=== PATIENT | male | born 1960 | race Caucasian/White ===

== ENCOUNTER 2019-10-26 11:15 | Emergency (ER) | payer MEDICARE, SELFPAY ==
--- NOTE | ~2019-10-26 | XR_ITS ---
EXAMINATION: XR knee RT 2V DATE: 10/26/2019 12:04 INDICATION: Lateral right knee pain and swelling post twisting injury. TECHNIQUE: AP and crosstable lateral views of the right knee were obtained.. COMPARISON: 06/28/2019 FINDINGS: Alignment is normal. No fracture. Joint spaces appear normal on nonweightbearing imaging. No right kn ee joint effusion or layering lipohemarthrosis. Prominent dense prepatellar soft tissue swelling.Mild soft tissue swelling extends about the medial and to lesser degree lateral sides of the knee. IMPRESSION: 1. No right knee joint effusion or osseous abnormality. 2. Prominent dense reticular soft tissue swelling which in the setting of trauma suggests hematoma. Reviewed, dictated and finalized at location A. IMPRESSION: 1. No right knee joint effusion or osseous abnormality. 2. Prominent dense reticular soft tissue swelling which in the setting of traum a suggests hematoma.
[2019-10-26 11:32] VITALS: BP 151/89; PULSE 70; RESP 16; TEMP 36.7; O2SAT 99
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
[2019-10-26 12:08] LABS: Basophils Absolute Auto 0.03 K/mm3 (0.00-0.10); Basophils Percent Auto 0.4 % (0.0-1.0); Hematocrit 41.1 % (40.0-54.0); Immature Granulocyte Absolute 0.05 K/mm3 (0.00-0.00); Immature Granulocyte Percent A 0.7 % (0.0-0.0); Lymphocytes Absolute Auto 1.47 K/mm3 (1.10-4.50); Lymphocytes Percent Auto 19.5 % (18.0-42.0); Mean Corpuscular HGB Conc 34.1 g/dL (32.0-36.0); Mean Corpuscular Hemoglobin 33.1 pg (27.0-31.0); Mean Corpuscular Volume 97.2 fL (78.0-102.0); Mean Platelet Volume 9.7 fl (8.7-11.0); Monocytes Absolute Auto 0.82 K/mm3 (0.10-0.90); Monocytes Percent Auto 10.9 % (2.0-11.0); Neutrophils Absolute Auto 5.2 K/mm3 (1.7-7.2); Neutrophils Percent Auto 68.5 % (50.0-70.0); Platelet Count Result 231 K/mm3 (150-420); Red Blood Count 4.23 M/mm3 (4.70-6.10); Red Cell Distribution Width 11.7 % (11.6-14.4); White Blood Count 7.6 K/mm3 (4.8-10.8)
[2019-10-26 12:23] LABS: Alanine Aminotransferase 39 U/L (16-63); Albumin Level 3.7 g/dL (3.4-5.0); Alkaline Phosphatase 72 U/L (46-116); Anion Gap 13.1 mmol/L (7-16); Aspartate Amino Transferase 22 U/L (15-37); Bilirubin,Total 0.7 mg/dL (0.00-1.00); Blood Urea Nitrogen 17 mg/dL (7-18); Calcium 8.6 mg/dL (8.5-10.1); Carbon Dioxide 29 mmol/L (21-32); Chloride 102 mmol/L (98-108); Estimated Glomerular Filt Rate > 60; Glucose 109 mg/dL (70-99); Osmolality Calculated 292 mOsm/kg (285-295); Potassium 4.1 mmol/L (3.5-5.1); Sodium 140 mmol/L (136-145); Total Protein 7.6 g/dL (6.4-8.2); Uric Acid 4.8 mg/dL (3.5-7.2)
[2019-10-26 13:00] VITALS: RESP 18
== END 2019-10-26 13:02 | disposition home or self-care (01) ==
PROVIDERS: Emergency Provider Emergency Medicine
DX: M70.41 Prepatellar bursitis, right knee (principal)
CPT/HCPCS: 36415; 73560; 80053; 84550; 85025; 99283; 99284

== ENCOUNTER 2020-11-26 11:25 | Outpatient (NON) | payer MEDICARE, SELFPAY ==
[2020-11-26 13:16] LABS: Alanine Aminotransferase 77 U/L (4-50); Alkaline Phosphatase 206 U/L (38-126); Anion Gap 11 mmol/L (8-16); Aspartate Amino Transferase 84 U/L (17-59); Bilirubin,Total 0.1 mg/dL (0.2-1.3); Blood Urea Nitrogen 17 mg/dL (9-20); Carbon Dioxide 27 mmol/L (22-30); Chloride 101 mmol/L (98-107); Estimated Glomerular Filt Rate > 60; Glucose 91 mg/dL (75-110); Potassium 4.6 mmol/L (3.4-5.0); Sodium 139 mmol/L (137-145)
[2020-11-26 15:17] LABS: Basophils Absolute Auto 0.1 K/mm3 (0.0-0.1); Eosinophils Percent Auto 0.8 % (0-4.4); Hematocrit 33.4 % (42.0-52.0); Hemoglobin 10.7 g/dL (14.0-18.0); Immature Granulocyte Absolute 0.04 K/mm3 (0.00-0.031); Immature Granulocyte Percent A 0.8 % (0-0.5); Lymphocytes Absolute Auto 1.37 K/mm3 (0.9-3.2); Lymphocytes Percent Auto 26.4 % (18.3-44.2); Mean Corpuscular Hemoglobin 31.2 pg (26-34); Mean Corpuscular Volume 97.4 fl (80-100); Monocytes Absolute Auto 0.4 K/mm3 (0.1-0.6); Monocytes Percent Auto 8.3 % (2.6-8.5); Neutrophils Absolute Auto 3.3 K/mm3 (1.3-6.7); Neutrophils Percent Auto 62.7 % (45.5-73.1); Platelet Count Result 375 k/mm3 (150-375); Red Blood Count 3.43 M/mm3 (4.6-6.20); Red Cell Distribution Width 12.1 % (11.5-14.5); White Blood Count 5.2 K/mm3 (4.5-10.0)
== END 2020-11-26 11:26 | disposition home or self-care (01) ==
LOC: ANHLAB 11:32
PROVIDERS: PCP Family Medicine; Visit Provider Plastic Surgery
DX: A49.01 Methicillin susceptible Staphylococcus aureus infection, unspecified site (principal)
CPT/HCPCS: 36415; 80053; 80285; 85025

== ENCOUNTER 2020-12-03 14:39 | Outpatient (NON) | payer MEDICARE, SELFPAY ==
[2020-12-03 15:28] LABS: Basophils Percent Auto 0.6 % (0.2-1.2); Eosinophils Absolute Auto 0.2 K/mm3 (0-0.3); Eosinophils Percent Auto 3.8 % (0-4.4); Hemoglobin 10.5 g/dL (14.0-18.0); Immature Granulocyte Absolute 0.04 K/mm3 (0.00-0.031); Immature Granulocyte Percent A 0.6 % (0-0.5); Lymphocytes Absolute Auto 1.24 K/mm3 (0.9-3.2); Lymphocytes Percent Auto 19.6 % (18.3-44.2); Mean Corpuscular HGB Conc 30.9 g/dl (32-36); Mean Corpuscular Hemoglobin 30.2 pg (26-34); Mean Corpuscular Volume 97.7 fl (80-100); Monocytes Absolute Auto 0.5 K/mm3 (0.1-0.6); Monocytes Percent Auto 7.7 % (2.6-8.5); Neutrophils Absolute Auto 4.3 K/mm3 (1.3-6.7); Neutrophils Percent Auto 67.7 % (45.5-73.1); Platelet Count Result 312 k/mm3 (150-375); Red Blood Count 3.48 M/mm3 (4.6-6.20); Red Cell Distribution Width 11.9 % (11.5-14.5); White Blood Count 6.3 K/mm3 (4.5-10.0)
[2020-12-03 16:01] LABS: Alanine Aminotransferase 16 U/L (4-50); Albumin Level 3.9 g/dL (3.5-5.1); Alkaline Phosphatase 128 U/L (38-126); Anion Gap 8 mmol/L (8-16); Aspartate Amino Transferase 34 U/L (17-59); Bilirubin,Total 0.1 mg/dL (0.2-1.3); Blood Urea Nitrogen 15 mg/dL (9-20); Calcium 8.4 mg/dL (8.4-10.2); Carbon Dioxide 25 mmol/L (22-30); Chloride 107 mmol/L (98-107); Estimated Glomerular Filt Rate > 60; Glucose 88 mg/dL (75-110); Sodium 140 mmol/L (137-145)
== END 2020-12-03 14:40 | disposition home or self-care (01) ==
PROVIDERS: PCP Family Medicine; Visit Provider Plastic Surgery
DX: Z51.81 Encounter for therapeutic drug level monitoring (principal); Z79.2 Long term (current) use of antibiotics
CPT/HCPCS: 36415; 80053; 85025

== ENCOUNTER 2021-01-09 12:06 | Outpatient (CLI) | payer MEDICARE, SELFPAY ==
[2021-01-09 13:05] LABS: Alanine Aminotransferase 25 U/L (16-63); Albumin Level 4.2 g/dL (3.4-5.0); Alkaline Phosphatase 111 U/L (46-116); Anion Gap 15 mmol/L (8-16); Aspartate Amino Transferase 13 U/L (15-37); Bilirubin,Total 0.3 mg/dL (0.00-1.00); Blood Urea Nitrogen 15 mg/dL (7-18); Calcium 9.1 mg/dL (8.5-10.1); Carbon Dioxide 26 mmol/L (21-32); Chloride 102 mmol/L (98-108); Estimated Glomerular Filt Rate > 60; Glucose 156 mg/dL (70-99); Osmolality Calculated 299 mOsm/kg (285-295); Potassium 3.9 mmol/L (3.5-5.1); Sodium 143 mmol/L (136-145); Total Protein 8.1 g/dL (6.4-8.2)
== END 2021-01-09 12:07 | disposition home or self-care (01) ==
LOC: CHSLAB 12:12
PROVIDERS: PCP Family Medicine
DX: M86.142 Other acute osteomyelitis, left hand (principal)
CPT/HCPCS: 36415; 80053

== ENCOUNTER 2021-01-14 14:36 | Outpatient (CLI) | payer MEDICARE, SELFPAY ==
--- NOTE | ~2021-01-14 | XR_ITS ---
EXAMINATION: XR shoulder LT min 2V DATE: 01/14/2021 15:00 INDICATION: Left shoulder pain and limited range of motion. TECHNIQUE: AP internally and externally rotated, AP oblique externally rotated and transscapular Y vi ews of the left shoulder were obtained. COMPARISON: None FINDINGS: Normal alignment. No fracture.Mild left glenohumeral and moderate acromioclavicular osteoarthritis. Soft tissues are unremarkable. IMPRESSION: Mild left glenohumeral and moderate acromioclavicular osteoarthritis. Reviewed, dictated and finalized at location A.
== END 2021-01-14 14:37 | disposition home or self-care (01) ==
LOC: CHSIMG 14:38
PROVIDERS: PCP Family Medicine; Visit Provider Family Medicine
DX: M25.512 Pain in left shoulder (principal)
CPT/HCPCS: 73030

== ENCOUNTER 2021-04-23 11:14 | Emergency (ER) | payer MEDICARE, SELFPAY ==
[2021-04-23 11:25] VITALS: BP 133/87; PULSE 64; RESP 16; TEMP 36.6; O2SAT 100
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
[2021-04-23] MEDS: cefTRIAXone 1 GM VIAL IM (11:46)
== END 2021-04-23 12:01 | disposition home or self-care (01) ==
PROVIDERS: Emergency Provider Emergency Medicine; PCP Family Medicine
DX: L03.012 Cellulitis of left finger (principal); Z87.891 Personal history of nicotine dependence
CPT/HCPCS: 96372; 99283; J0696

== ENCOUNTER 2022-05-20 08:04 | Outpatient (RCR) | payer MEDICARE, SELFPAY ==
--- NOTE | 2022-05-20 08:11 | PTOPEVAL1 ---
Assessment and note entered by JT File, PT Evaluation Information Assessment Status Evaluation Diagnosis s/p R hip joint replacement (revision) Onset 02/14/22 Subjective Information patient reports he fell off a ladder while trying to cut some branches off a tree. he reports during his fall he fractured his R femur where he had a prior hip replacement. he reports he had several other fractures on his R side (ribs) during this fall. he reports he had a revision of the prior hip replacement and is now struggling with his walking and strength in the R hip. he reports he has had several other injuries to his body over the years. he reports the R knee is the most painful joint since his fall. he reports he has had an xray of the R knee, but no MRI. Reported Pain Level Pain Score 5,5: Self Report Assessment PT Clinical Summary mr. buckley presents to skilled PT services for rehab following a fall, R hip fracture, and R REBECCA revision. he presents this date with deficits in strength, rom, and flexibility across the R hip and knee. in addition to these deficits, he displays antalgic gait, and pain in the R hip/knee . he would do well to attend skilled PT to improve his objective/functional deficits and progress towards a return to his prior level functional activity performance/quality of life. Plan of Care Interventions Electrical Stimulation,Gait Training,Hot Pack/Cold Pack,Neuro Re-education,Patient/Caregiver Educati ,Therapeutic Activities,Therapeutic Exercise PT Services Indicated Yes Treatment Frequency and 2x weekly for 8 visits Duration These treatments will address the objective and functional deficits as defined above. The patient will be advanced safely and appropriately in order for the patient to progress towards his/her prior level of function. Additional exercises will be introduced and as well as a comprehensive home exercise program upon discharge, if needed, ?to ensure carryover of functional gains achieved in the clinic. This treatment plan has been reviewed and agreement upon by the patient.
--- NOTE | 2022-06-17 16:20 | PTOPDC ---
Assessment and note entered by JT File, PT Evaluation Information Assessment Status Evaluation Diagnosis s/p R hip joint replacement (revision) Onset 02/14/22 Subjective Information patient reports difficulty getting his lower body dressed and tieing his shoes. he reports feeling he has achieved his goals by coming to therapy. he reports he feels much more mobile and strong compared to his initial evaluation. he reports he is ready to be done with therapy, and continue on his own for a while. Reported Pain Level Pain Score 0,2: Self Report Assessment PT Clinical Summary mr. buckley presents to skilled PT services for his 8th skillled therapy visit. he presents with improved strength, gait mechanics, decrease pain, and improved quality of life. he has only met a few goals, but has made progress towards all goals . he willDC skilled PT services as of this date, and continue with HEP independent at home. Plan of Care Treatment Frequency and DC to independent HEP Duration
== END 2022-06-17 13:17 | disposition home or self-care (01) ==
LOC: CHSPT 08:04
PROVIDERS: PCP Family Medicine; Visit Provider Orthopaedic Surgery
DX: Z47.1 Aftercare following joint replacement surgery (principal); Z96.641 Presence of right artificial hip joint
CPT/HCPCS: 97110; 97161; 97530

== ENCOUNTER 2023-05-31 19:41 | Emergency (ER) | payer MEDICARE, SELFPAY ==
[2023-05-31 19:45] VITALS: BP 148/100; PULSE 114; RESP 20; TEMP 36.6; O2SAT 97
[2023-05-31 20:09] LABS: Basophils Absolute Auto 0.05 K/mm3 (0.00-0.10); Basophils Percent Auto 0.8 % (0.0-1.0); Eosinophils Absolute Auto 0.13 K/mm3 (0.02-0.50); Hematocrit 42.9 % (40.0-54.0); Hemoglobin 14.3 g/dL (14.0-18.0); Immature Granulocyte Absolute 0.02 K/mm3 (0.00-0.00); Immature Granulocyte Percent A 0.3 % (0.0-0.0); Lymphocytes Absolute Auto 2.66 K/mm3 (1.10-4.50); Lymphocytes Percent Auto 41.7 % (18.0-42.0); Mean Corpuscular HGB Conc 33.3 g/dL (32.0-36.0); Mean Corpuscular Hemoglobin 33.3 pg (27.0-31.0); Mean Platelet Volume 10.1 fl (8.7-11.0); Monocytes Absolute Auto 0.74 K/mm3 (0.10-0.90); Monocytes Percent Auto 11.6 % (2.0-11.0); Neutrophils Absolute Auto 2.8 K/mm3 (1.7-7.2); Neutrophils Percent Auto 43.6 % (50.0-70.0); Platelet Count Result 266 K/mm3 (150-420); Red Blood Count 4.29 M/mm3 (4.70-6.10); Red Cell Distribution Width 11.6 % (11.6-14.4); White Blood Count 6.4 K/mm3 (4.8-10.8)
[2023-05-31 20:13] LABS: Anion Gap 6 mmol/L (8-16); Blood Urea Nitrogen 16 mg/dL (7-18); Carbon Dioxide 31 mmol/L (21-32); Chloride 97 mmol/L (98-108); Estimated Glomerular Filt Rate > 60; Glucose 98 mg/dL (70-99); Osmolality Calculated 279 mOsm/kg (285-295); Potassium 2.9 mmol/L (3.5-5.1); Sodium 134 mmol/L (136-145)
[2023-05-31] MEDS: TETANUS,DIPHTHERIA,AC PERTUSSIS ADULT 0.5 ML (ADACEL) IM (20:18)
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
[2023-05-31] MEDS: POTASSIUM CHLORIDE 20 MEQ ER TABLET 80 MEQ PO (20:21)
[2023-05-31] MEDS: SODIUM CHLORIDE 0.9% IV 1,000 ML 999 ML IV CONT (20:22)
[2023-05-31 20:30] VITALS: BP 137/83; PULSE 90; RESP 20; O2SAT 99
--- NOTE | 2023-05-31 21:00 | PC.NURSE ---
POC discussed c pt and his family about observation in ER to do another lab draw to check H&H in 4 hrs. Pt resting comfortably c call reardon at side. IVF infusing as per order.
--- NOTE | 2023-05-31 22:00 | PC.NURSE ---
Pt sleeping comfortably, no distress, VSS. No changes.
[2023-05-31 22:16] VITALS: BP 102/66; PULSE 67; RESP 18; O2SAT 95
[2023-05-31 23:36] VITALS: BP 98/65; PULSE 63; RESP 18; O2SAT 97
[2023-06-01 00:03] LABS: Hematocrit 35.3 % (40.0-54.0); Hemoglobin 11.7 g/dL (14.0-18.0)
[2023-06-01 00:07] VITALS: BP 109/68; PULSE 62; RESP 18; O2SAT 97
--- NOTE | 2023-06-01 00:07 | PC.NURSE ---
Pt sleeping, awakens easily H&H redrawn c results given to ERP Dr Deutsch. VSS. POC for d/c home discussed.
[2023-06-01 00:21] VITALS: BP 112/71; PULSE 74; RESP 20; O2SAT 99
--- NOTE | 2023-06-01 14:58 | PC.NURSE ---
0730 pt returns this am . states iv left in arm. noted 20g iv to right ac. iv removed. tip intact, no active bleeding. dressing applied. pt departed at 0735.
== END 2023-06-01 00:30 | disposition home or self-care (01) ==
PROVIDERS: Emergency Provider Emergency Medicine; PCP Family Medicine
DX: S61.412A Laceration without foreign body of left hand, initial encounter (principal); Z87.891 Personal history of nicotine dependence; Z23 Encounter for immunization; W45.8XXA Other foreign body or object entering through skin, initial encounter
CPT/HCPCS: 12002; 36415; 80048; 85014; 85018; 85025; 86850; 86900; 86901; 90471; 90715; 96360; 99283; A9270; J7030

== ENCOUNTER 2024-06-28 12:11 | Outpatient (CLI) | payer MEDICARE, SELFPAY ==
[2024-06-28 12:27] LABS: Basophils Absolute Auto 0.04 K/mm3 (0.00-0.10); Basophils Percent Auto 0.8 % (0.0-1.0); Eosinophils Absolute Auto 0.01 K/mm3 (0.02-0.50); Eosinophils Percent Auto 0.2 % (1.0-6.0); Hematocrit 43.8 % (40.0-54.0); Hemoglobin 14.6 g/dL (14.0-18.0); Immature Granulocyte Absolute 0.03 K/mm3 (0.00-0.00); Immature Granulocyte Percent A 0.6 % (0.0-0.0); Lymphocytes Absolute Auto 1.25 K/mm3 (1.10-4.50); Lymphocytes Percent Auto 24.6 % (18.0-42.0); Mean Corpuscular HGB Conc 33.3 g/dL (32-36); Mean Corpuscular Hemoglobin 31.8 pg (27.0-31.0); Mean Corpuscular Volume 95.4 fL (78.0-102.0); Mean Platelet Volume 9.5 fl (8.7-11.0); Monocytes Absolute Auto 0.42 K/mm3 (0.10-0.90); Monocytes Percent Auto 8.3 % (2.0-11.0); Neutrophils Absolute Auto 3.33 K/mm3 (1.70-7.20); Neutrophils Percent Auto 65.5 % (50.0-70.0); Platelet Count Result 289 K/mm3 (150-420); Red Blood Count 4.59 M/mm3 (4.70-6.10); Red Cell Distribution Width 11.9 % (11.6-14.4); White Blood Count 5.1 K/mm3 (4.8-10.8)
[2024-06-28 12:36] LABS: Hemoglobin A1C 5.2 % (<5.7)
[2024-06-28 13:53] LABS: Alanine Aminotransferase 44 U/L (16-63); Albumin Level 4.3 g/dL (3.4-5.0); Alkaline Phosphatase 79 U/L (46-116); Anion Gap 8 mmol/L (4-12); Aspartate Amino Transferase 27 U/L (15-37); Bilirubin,Total 0.4 mg/dL (0.00-1.00); Blood Urea Nitrogen 17 mg/dL (7-18); Calcium 9.1 mg/dL (8.5-10.1); Carbon Dioxide 30 mmol/L (21-32); Chloride 100 mmol/L (98-108); Cholesterol 284 mg/dL (0-200); Estimated Glomerular Filt Rate > 60; Folic Acid 19.7 ng/mL (8.6->20); Free T4 Free Thyroxine Reflex 0.75 ng/dL (0.76-1.46); Glucose 95 mg/dL (70-99); HDL Direct 67 mg/dL (40-60); LDL Cholesterol Calculated 193 mg/dL (<130); Osmolality Calculated 287 mOsm/kg (285-295); Potassium 4.9 mmol/L (3.5-5.1); Sodium 138 mmol/L (136-145); Thyroid Stimulating Hormone Reflex 4.81 u/IU/mL (0.36-3.74); Triglycerides 119 mg/dL (0-150); Vitamin B12 569 pg/mL (193-986)
[2024-06-29 08:09] LABS: Hepatitis A Antibody IgM NON-REACTIVE (NON-REACTIVE); Hepatitis B Core Antibody NON-REACTIVE (NON-REACTIVE); Hepatitis B Surface Antigen NON-REACTIVE (NON-REACTIVE); Hepatitis C Virus Antibody NON-REACTIVE (NON-REACTIVE)
== END 2024-06-28 12:12 | disposition home or self-care (01) ==
LOC: CHSLAB 12:12
PROVIDERS: PCP Family Medicine; Visit Provider Family Medicine
DX: E11.9 Type 2 diabetes mellitus without complications (principal); G62.9 Polyneuropathy, unspecified; R74.01 Elevation of levels of liver transaminase levels; E53.8 Deficiency of other specified B group vitamins; E03.9 Hypothyroidism, unspecified
CPT/HCPCS: 36415; 80053; 80061; 80074; 82607; 82746; 83036; 84439; 84443; 85025

== ENCOUNTER 2024-11-20 08:58 | Outpatient (CLI) | payer MEDICARE, SELFPAY ==
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
--- NOTE | ~2024-11-20 | XR_ITS ---
AP and lateral views of the right femur Clinical History: Pain Findings: No acute fracture or dislocation is seen. Prior hip arthroplasty with additional probable h ealed fracture deformity the proximal femoral shaft.. Soft tissues are unremarkable. Impression: No acute abnormality. Extensive orthopedic hardware at the proximal to mid femur with hip arthroplasty and additional fixat ion hardware for probable healed fracture the proximal femoral shaft. Reviewed, dictated and finalized at location . Impression: No acute abnormality. Extensive orthopedic hardware at the proximal to mid femur with hip arthroplast y and additional fixation hardware for probable healed fracture the proximal fe moral shaft.
--- NOTE | ~2024-11-20 | XR_ITS ---
Cervical Spine: AP, lateral, open-mouth views Clinical History: Pain, injury Findings: The normal lordotic curve is maintained no acute fracture or sublocation seen. There is pos terior fusion changes from C3 through C7. There is multilevel moderate degenerative distended and cer vical spine, worst at C3-C4, C5-C6, and C6-C7.. Pre-vertebral soft tissues are unremarkable. Impression: Posterior fusion from C3 through C7. Moderate degenerative spondylosis, as above. Reviewed, dictated and finalized at location . Impression: Posterior fusion from C3 through C7. Moderate degenerative spondylosis, as above.
--- OUTSIDE RECORDS SUMMARY | 2024-11-20 09:10 | XMS_ITS | Referral Summary ---
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 [id number] / / [id number] Globus Medical End Cap Spinal Quartex 3.5-4.0mm Titanium 1149.0001 - [id number] Implanted:Qty: 10 on 06/14/2023 by Mehdi Kearns MD at [facility] N/A: Spine Cervical Globus Medical 1149.0001 / / Globus Medical Screw Spinal Posterior Cervical Polyaxial Self Drilling Threaded Solid Quartex 3.5x14mm Titanium 1149.3514 - [id number] Implanted:Qty: 6 on 06/14/2023 by Mehdi Kearns MD at [facility] N/A: Spine Cervical Globus Medical 1149.3514 / / Globus Medical Quartex 4mm 75mm Curve Jamal Spinal Nonsterile Latex Free 1149.7575 - [id number] Implanted:Qty: 2 on 06/14/2023 by Mehdi Kearns MD at [facility] N/A: Spine Cervical Globus Medical 1149.7575 / / Globus Medical Screw Spinal Posterior Cervical Polyaxial Self Drilling Threaded Solid Quartex 5.0x26mm Titanium 1149.5026 - [id number] Implanted:Qty: 4 on 06/14/2023 by Mehdi Kearns MD at [facility] N/A: Spine Cervical Globus Medical 1149.5026 / / Cerapedics Inc Allograft Bone Putty 2.5cc 700-025 - [id number] Implanted:Qty: 1 on 06/14/2023 by Mehdi Kearns MD at [facility] N/A: Spine Cervical Cerapedics Inc [id number] 08/17/2025 700-025 / / [id number] Allosource Canpac Nonpurge Frozen Graft 50cc Bone [id number] - [id number] Implanted:Qty: 1 on 06/14/2023 by Mehdi Kearns MD at [facility] N/A: Spine Cervical Allosource 01/26/2028 [id number] / / [id number] Explanted Type Area Imaging Administrator Device Identifier Shelf Expiration Date Model / Serial / Lot Microaire Surgical Instruments 1600-445ns Dominick .045in 4in 2 [place] Smooth Wire Fixation - S0 - [id number] Explanted:Qty: 2 on 10/10/2020 by Colt Clayton III, MD at [facility] Left: Fingers Microaire Surgical Instruments 1600-445NS / 0 / Procedures Procedure Name Priority Date/Time Associated Diagnosis Comments HEPATITIS C RNA, QUANTITATIVE, PCR Routine 11/20/2020 6:38 AM CDT from Last 3 Months or Most Recently Relevant to Health Maintenance Results * Hepatitis C (HCV) RNA PCR, quantitative (11/20/2020 6:38 AM CDT) HCV RNA result Not Detected JOHN ADKINS Comment: Interpretive data: The quantifiable range of this assay is 15 IU/mL to 100,000,000 IU/mL (1.18 log IU/mL to 8.00 log IU/mL). Testing was performed by the JEFFERY AmpliPrep/JEFFERY TaqMan HCV Test version 2.0 (Hemanth [employer] Testing performed at [facility] Current Interpretive Data was last revised on 2015. Blood specimen (specimen) 11/20/2020 6:38 AM CDT 11/20/2020 7:02 AM CDT Colt Clayton III, MD LAB MICROBIOLOGY - G ENERAL ORDERABLES Final Result JONH ADKINS [facility] [place] [address] from Last 3 Months or Most Recently Relevant to Health Maintenance Insurance [employer] HMO MEDICARE MEDICARE [employer] MEDICARE HMO IDPA MEDICARE IDPA [facility] MEDICARE HMO Advance Directives For more information, please contact: [phone] * Full Code (Latest Code Status on File) Date Activated Date Inactivated Comments 06/11/2023 6:22 AM 06/24/2023 7:52 PM * Full Code Date Activated Date Inactivated Comments 02/15/2022 7:52 AM 02/16/2022 8:28 PM * Full Code Date Activated Date Inactivated Comments 02/13/2022 12:11 AM 02/15/2022 7:52 AM * Full Code Date Activated Date Inactivated Comments 11/14/2020 1:55 AM 11/22/2020 2:21 PM * Full Code Date Activated Date Inactivated Comments 10/11/2020 7:06 PM 10/20/2020 7:08 PM Care Teams Construction Project Manager Relationship Specialty Start Date End Date Unknown, Notinfile PCP - General 06/10/23 No, Physician 06/10/23
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
== END 2024-11-20 08:59 | disposition home or self-care (01) ==
PROVIDERS: PCP Family Medicine; Visit Provider Family Medicine
DX: G89.29 Other chronic pain (principal); M54.2 Cervicalgia; S72.91XA Unspecified fracture of right femur, initial encounter for closed fracture; Z98.1 Arthrodesis status; M43.02 Spondylolysis, cervical region
CPT/HCPCS: 72040; 73130; 73552

== ENCOUNTER 2025-03-02 07:50 | Emergency (ER) | payer MEDICARE, SELFPAY ==
--- OUTSIDE RECORDS SUMMARY | 2021-11-24 04:07 | XMS_ITS | Continuity of Care Document ---
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 Name Role Phone Patsy Martin OT Unavailable Unavailable Procedures Procedure Date Progress Note Therapeutic Activities Neuromuscular Re-Ed Therapeutic Exercise Therapeutic Activities Therapeutic Exercise Therapeutic Activities Progress Note Manual Therapy Therapeutic Activities Manual Therapy Neuromuscular Re-Ed Therapeutic Activities Manual Therapy OT Evaluation Moderate Complexity Therapeutic Activities Therapeutic Exercise Progress Note Therapeutic Exercise Therapeutic Activities Manual Therapy Therapeutic Activities Therapeutic Exercise Manual Therapy Hot or Cold Pack Therapeutic Activities Hot or Cold Pack Manual Therapy Neuromuscular Re-Ed Hot or Cold Pack Therapeutic Activities Manual Therapy Therapeutic Activities Hot or Cold Pack Manual Therapy Therapeutic Activities Hot or Cold Pack Manual Therapy Therapeutic Activities Neuromuscular Re-Ed Therapeutic Exercise Ultrasound Therapeutic Activities Manual Therapy Progress Note Hot or Cold Pack Therapeutic Activities Neuromuscular Re-Ed Therapeutic Exercise Therapeutic Activities Manual Therapy Hot or Cold Pack Therapeutic Exercise Neuromuscular Re-Ed Therapeutic Activities Hot or Cold Pack Manual Therapy Hot or Cold Pack Manual Therapy Therapeutic Activities Neuromuscular Re-Ed Progress Note Therapeutic Activities Therapeutic Exercise Therapeutic Activities Therapeutic Exercise Neuromuscular Re-Ed Therapeutic Activities Progress Note Manual Therapy Hot or Cold Pack Ultrasound Therapeutic Activities Neuromuscular Re-Ed Therapeutic Exercise Hot or Cold Pack Manual Therapy Therapeutic Activities Therapeutic Activities Neuromuscular Re-Ed Therapeutic Exercise Manual Therapy Therapeutic Activities Hot or Cold Pack Ultrasound Neuromuscular Re-Ed Therapeutic Exercise Therapeutic Activities Hot or Cold Pack Manual Therapy Therapeutic Activities Therapeutic Activities Manual Therapy Hot or Cold Pack Therapeutic Activities Therapeutic Exercise Neuromuscular Re-Ed Hot or Cold Pack Manual Therapy Therapeutic Activities Therapeutic Exercise Therapeutic Activities Neuromuscular Re-Ed Therapeutic Activities Neuromuscular Re-Ed Therapeutic Exercise Therapeutic Activities Manual Therapy Hot or Cold Pack Progress Note Therapeutic Activities Manual Therapy Hot or Cold Pack Therapeutic Activities Neuromuscular Re-Ed Therapeutic Exercise Therapeutic Activities Manual Therapy Hot or Cold Pack Therapeutic Activities Therapeutic Exercise Neuromuscular Re-Ed Manual Therapy Progress Note Therapeutic Activities Hot or Cold Pack Therapeutic Exercise Progress Note Neuromuscular Re-Ed Therapeutic Activities Therapeutic Exercise Therapeutic Activities Neuromuscular Re-Ed Therapeutic Exercise Hot or Cold Pack Therapeutic Activities Manual Therapy Therapeutic Exercise Therapeutic Activities Therapeutic Exercise Neuromuscular Re-Ed Therapeutic Activities Hot or Cold Pack Therapeutic Exercise Manual Therapy Therapeutic Activities Hot or Cold Pack Therapeutic Exercise Manual Therapy Neuromuscular Re-Ed Therapeutic Exercise Therapeutic Activities Manual Therapy Neuromuscular Re-Ed Therapeutic Activities Therapeutic Exercise Hot or Cold Pack Therapeutic Activities Manual Therapy Therapeutic Exercise Neuromuscular Re-Ed Therapeutic Activities Progress Note Therapeutic Exercise Hot or Cold Pack Therapeutic Activities Therapeutic Exercise Hot or Cold Pack Neuromuscular Re-Ed Therapeutic Activities Therapeutic Exercise Hot or Cold Pack Therapeutic Activities Neuromuscular Re-Ed Manual Therapy Therapeutic Exercise Therapeutic Activities Neuromuscular Re-Ed Therapeutic Exercise Hot or Cold Pack Therapeutic Activities Therapeutic Activities Progress Note Manual Therapy Hot or Cold Pack Neuromuscular Re-Ed Therapeutic Activities Therapeutic Activities Neuromuscular Re-Ed Manual Therapy Hot or Cold Pack Therapeutic Exercise Therapeutic Activities PT Evaluation High Complexity Therapeutic Activities Neuromuscular Re-Ed Therapeutic Activities Progress Note Neuromuscular Re-Ed Manual Therapy Hot or Cold Pack Neuromuscular Re-Ed Therapeutic Activities Manual Therapy Hot or Cold Pack Hot or Cold Pack Therapeutic Activities Therapeutic Exercise Therapeutic Activities Therapeutic Exercise Manual Therapy Hot or Cold Pack Therapeutic Activities Manual Therapy Therapeutic Exercise Hot or Cold Pack Therapeutic Activities Manual Therapy Therapeutic Exercise Hot or Cold Pack Therapeutic Activities Therapeutic Exercise Hot or Cold Pack Manual Therapy Therapeutic Activities Manual Therapy Progress Note Therapeutic Exercise Manual Therapy Therapeutic Exercise Therapeutic Activities Therapeutic Activities Manual Therapy Therapeutic Exercise Neuromuscular Re-Ed Manual Therapy OT Re-Evaluation Therapeutic Activities Therapeutic Activities Neuromuscular Re-Ed Therapeutic Exercise OT Evaluation Moderate Complexity Therapeutic Activities Manual Therapy Therapeutic Exercise Advance Directives Directive Yes / No Effective Date File Name No Information Encounters Encounter Description Practice Location Reason(s) For Visit Diagnoses Date Provider Providers Copied on Encounter [facility] [employer] [address] [place] [address], [id number], tel:[phone] [place] No Information 2 Mario Garner. . [facility] [employer], [place], [place], [address], [place] tel:[phone] [place] No Information - 2 aMrio Garner. . Referring Provider: Princess Amaya, [address] [place] [address], [address]. tel:[phone] [facility] [employer], [place], [place], [id number], tel:[phone] Bru[place] No Information 2 Mario Patsy. . Referring Provider: Princess Amaya, [address] [place] [address], [place], [address]. tel:[phone] [place] [address], [address] [facility] [address], [place], [place], [address], tel:[phone] Bruin No Information 2 Mario Patsy. . Referring Provider: Rosita Guzmán[address] [place] [address], [place], [address]. tel:[phone] [place] [address] [address], [place], [place], [address], [place] tel:[phone] Bru[place] No Information 2 Mario Patsy. . Referring Provider: Rosita Guzmán[address] [place] [address], [place], [address]. tel:[phone] [place] [address], [address], [place], [place], [address], [place] tel:[phone] Bru[place] No Information 2 Mario Patsy. . Referring Provider: Rosita Guzmán[address] [place] [address], [place], [address]. tel:[phone] [place] [address] [address] [facility], [place], [place], [address], [place] tel:[phone] Bru[place] No Information 0 2 Mario Patsy. . Referring Provider: Rosita Guzmán[address] [place] [address], [place], [address]. tel:[phone] [place] [address] [address], [place], [place], [address], [place] tel:[phone] Bruin No Information 1 Shimon Phillips. . Referring Provider: Kimberly Guzmán [facility], [place], [address]. tel:[phone] [facility], [place], [place], [address], [place] tel:[phone] Bruin No Information 1 Shimon Phillips. . Referring Provider: Kimberly Guzmán [facility], [place], [address]. tel:[phone] [place] [address], [address], [place], [place], [address], [place] tel:[phone] Bruin No Information 1 Shimon Phillips. . Referring Provider: Kimberly Guzmán [facility], [place], [address]. tel:[phone] [place] [address] [address], [place], [place], [address], [place] tel:[phone] Bruin No Information 1 Shimon Phillips. . Referring Provider: Kimberly Guzmán [facility], [place], [address]. tel:[phone] [place] [address] [address], [place], [place], [address], [place] tel:[phone] Bruin No Information 0 1 Shimon Phillips. . Referring Provider: Kimberly Guzmán [facility], [place], [address]. tel:[phone] [place] [address], [address], [place], [place], [address], [place] tel:[phone] Bruin No Information 0 1 Shimon Phillips. . Referring Provider: Kimberly Guzmán [facility], [place], [address]. tel:[phone] [place] [address], [place], [place], [address], [place] tel:[phone] Bruin No Information 1 Edi Almeida [place], [place]. [facility], [place], [place], [address], [place] tel:[phone] Bruin No Information -202 1 Shimon Phillips. . Referring Provider: Kimberly Guzmán [facility], [place], [address]. tel:[phone] [place] [address] [address], [place], [place], [address], tel:[phone] Bruin No Information 1 Edi Almeida [place]. [facility], [place], [place], [address], [place] tel:[phone] Bruin No Information 1 Shimon Phillips. . Referring Provider: Kimberly Guzmán [facility], [place], [address]. tel:[phone] [place] [address] [address], [place], [place], [address], [place] tel:[phone] Bruin No Information 1 Thong Humphreyske. . [facility], [place], [place], [address], [place] tel:[phone] Bruin No Information 1 Shimon Phillips. . Referring Provider: Kimberly Guzmán [facility], [place], [address]. tel:[phone] [place] [address] [address], [place], [place], [address], [place] tel:[phone] Bruin No Information 1 Shimon Phillips. . Referring Provider: Kimberly Guzmán [facility], [place], [address]. tel:[phone] [place] [address], [place], [place], [address], [place] tel:[phone] Bruin No Information 1 Makler Luke. . [facility], [place], [place], [address], [place] tel:[phone] Bruin No Information Oct-1 1 Edi [place] , [place], [place]. [facility], [address], [place], [place], [address], [place] tel:[phone] Bruin No Information Oct-1 1 Shimon Phillips. . Referring Provider: Princess Amaya, On license of [facility] [place], [address]. tel:[phone] [facility], [address], [place], [place], [address], [place] tel:[phone] Bruin No Information 1 1 Edi [place] , [place]. [facility], [address], [place], [place], [address], [place] tel:[phone] Bru[place] No Information 1 1 Shimon Phillips. . Referring Provider: Princess Amaya, [address] [place] [address], [address]. tel:[phone] [facility], [address], [place], [place], [address], [place] tel:[phone] Bruin No Information Oct-0 1 Edi [place] , [place]. [facility], [address], [place], [place], [address], [place] tel:[phone] Bruin No Information Oct-0 1 Shimon Phillips. . Referring Provider: Princess Amaya, [address] [place] [address], [address]. tel:[phone] [facility], [address], [place], [place], [address], [place] tel:[phone] Bruin No Information Oct-0 1 Edi [place] , [place]. [facility], [address], [place], [place], [address], [place] tel:[phone] Bruin No Information Oct-0 1 Shimon Phillips. . Referring Provider: Princess Amaya, Rosita1 [facility], [place], [address]. tel:[phone] [facility], [place], [place], [address], [place] tel:[phone] Bruin No Information Oct-0 1 Shimon Phillips. . Referring Provider: Princess Amaya, Rosita1 [facility], [place], [address]. tel:[phone] [facility], [place], [place], [address], [place] tel:[phone] Bruin No Information Oct-0 1 Edi [place]. , [place], [place]. [facility], [address], [place], [place], [address], tel:[phone] Bruin No Information Sep-2 1 Shimon Phillips. . Referring Provider: Princess Amaya, [address] [facility], [place], [address]. tel:[phone] [facility], [place], [place], [address], [place] tel:[phone] Bruin No Information Sep-2 1 Edi [place] , [place]. [facility], [address], [place], [place], [address], [place] tel:[phone] Bruin No Information Sep-2 1 Edi [place]. [facility], [address], [place], [place], [address], [place] tel:[phone] Bruin No Information Sep-2 1 Shimon Phillips. . Referring Provider: Princess Amaya, Rosita1 [facility], [place], [address]. tel:[phone] [facility], [place], [place], [address], [place] tel:[phone] Bruin No Information Sep-2 202 1 Shimon Phillips. . Referring Provider: Rosita Guzmán1 [place], [address]. tel:[phone] [facility], [address], [place], [place], [address], tel:[phone] Bruin No Information 1 Edi [place]. , [place], [place]. [facility], [place], [place], [address], [place] tel:[phone] Bruin No Information 1 Shimon Phillips. . Referring Provider: Rosita Guzmán1 [place], [address]. tel:[phone] [facility] [address], [place], [place], [address], [place] tel:[phone] Bruin No Information 1 Edi [place]. , [place]. [facility], [place], [place], [address], [place] tel:[phone] Bruin No Information 1 Shimon Phillips. . Referring Provider: Rosita Guzmán[address] [place] [address], [address]. tel:[phone] [facility] [address], [place], [place], [address], [place] tel:[phone] Bruin No Information 1 Edi [place]. , [place]. [facility], [place], [place], [address], [place] tel:[phone] Bruin No Information 1 Edi [place]. , [place]. [facility], [place], [place], [address], [place] tel:[phone] Bruin No Information 1 Shimon Phillips. . Referring Provider: Rosita Guzmán1 [place], [address]. tel:[phone] [facility], [place], [place], [address], [place] tel:[phone] Bruin No Information 1 Edi [place] , [place]. [facility], [place], [place], [address], [place] tel:[phone] Bruin No Information 1 Shimon Phillips. . Referring Provider: Princess Amaya, On license of [facility], [place], [address]. tel:[phone] [facility], [place], [place], [address], [place] tel:[phone] [place] No Information 1 Shimon Phillips. . Referring Provider: Princess Amaya, Rosita[address] [place], [address]. tel:[phone] [facility], [address], [place], [place], [address], [place] tel:[phone] Bruin No Information 1 Edi [place] [facility], [address], [place], [place], [address], [place] tel:[phone] Bruin No Information 1 Shimon Phillips. . Referring Provider: Princess Amaya, On license of [facility] [place], [address]. tel:[phone] [facility], [place], [place], [address], [place] tel:[phone] [place] No Information 1 Edi [place] , [place]. [facility], [place], [place], [address], [place] tel:[phone] Bru[place] No Information 1 Shimon Alan. . Referring Provider: Kimberly Guzmán [facility], [place], [address]. tel:[phone] [place] [address] [address], [place], [place], [address], tel:[phone] [place] No Information 1 Shimon hPillips. . Referring Provider: Kimberly Guzmán [facility], [place], [address]. tel:[phone] [place] [address] [address], [place], [place], [address], [place] tel:[phone] Bru[place] No Information 1 Shimon Phillips. . Referring Provider: Kimberly Guzmán [facility], [place], [address]. tel:[phone] [place] [address] [address], [place], [place], [address], [place] tel:[phone] Bruin No Information 1 Edi Mcadamsn. , [place]. [facility], [place], [place], [address], [place] tel:[phone] Bru[place] No Information 1 Daley Vance. , [place]. [facility], [place], [place], [address], [place] tel:[phone] Bru[place] No Information 1 Shimon Phillips. . Referring Provider: Kimberly Guzmán [facility], [place], [address]. tel:[phone] [place] [address] [address], [place], [place], [address], [place] tel:[phone] [place] No Information 1 Shimon Phillips. . Referring Provider: Kimberly Guzmán [facility], [place], [address]. tel:[phone] [place] [address] [address], [place], [place], [address], [place] tel:[phone] Bru[place] No Information 1 Edi [place]. , [place]. [facility], [address], [place], [place], [address], tel:[phone] [place] No Information 1 Edi [place] , [place]. [facility], [address], [place], [place], [address], [place] tel:[phone] Bru[place] No Information 1 Shimon Phillips. . Referring Provider: Kimberly Guzmán [facility], [place], [address]. tel:[phone] [facility], [address], [place], [place], [address], tel:[phone] [place] No Information 1 Edi [place] , [place]. [facility], [address], [place], [place], [address], [place] tel:[phone] [place] No Information 1 Shimon Phillips. . Referring Provider: Kimberly Guzmán [facility], [place], [address]. tel:[phone] [facility], [place], [place], [address], [place] tel:[phone] [place] No Information 1 Shimon Phillips. . Referring Provider: Kimberly Guzmán [facility], [place], [address]. tel:[phone] [facility], [place], [place], [address], [place] tel:[phone] [place] No Information 1 Shimon Phillips. . Referring Provider: Kimberly Guzmán [facility], [place], [address]. tel:[phone] [place] [address] [address], [place], [place], [address], [place] tel:[phone] [place] No Information 1 Rashida Schneider. . Referring Provider: Kimberly Guzmán [facility], [place], [address]. tel:[phone] [place] [address] [address] [facility], [place], [place], [address], [place] tel:[phone] Bru[place] No Information 1 Shimon Russoyne. . Referring Provider: Kimberly Guzmán [facility], [place], [address]. tel:[phone] [place] [address], [address] [facility], [place], [place], [address], [place] tel:[phone] Bru[place] No Information 1 Shimon Russoyne. . Referring Provider: Kimberly Guzmán [facility], [place], [address]. tel:[phone] [place] [address] [place], [place] [address], [place], [place], [address], [place] tel:[phone] [place] No Information 1 Shimon Russoyne. . Referring Provider: Kimberly Guzmán [facility], [place], [address]. tel:[phone] [place] [address] [address], [place], [place], [address], [place] tel:[phone] [place] No Information 0 1 Shimon Russoyne. . Referring Provider: Kimberly Guzmán [facility], [place], [address]. tel:[phone] [place], [place] [address], [place], [place], [address], [place] tel:[phone] Bru[place] No Information 1 Shimon Phillips. . Referring Provider: Kimberly [place]zmán [place], [address]. tel:[phone] [facility], [address] [place], [place] [address], [id number], tel:[phone] [place] No Information 1 Shimon Phillips. . Referring Provider: Princess Amaya, [address] [place], [address]. tel:[phone] [facility] [address] [place], [place] [address]uite [facility], [place], [place], [address], tel:[phone] [place] No Information 1 Shimon Russoyne. . Referring Provider: Colt Clayton, [address], [place], [address]. tel:[phone], [address], tel:[phone] [place] No Information 1 Shimon Phillips. . Referring Provider: Colt Clayton, [address] [place] [address], [place], [address]. tel:[phone], [address], tel:[phone] [place] No Information 1 Shimon Phillips. . Referring Provider: Colt Clayton, [address], [place], [address]. tel:[phone] Family History Family Member Type Diagnosis Age At Onset No Information Payers Payer name Insurance type Covered libertarian ID Authorcalea miley(s) Medicare [place] [id number] Social History Type Description Quantity Date Captured Comments Sex Male Smoking Status No Information Chief Complaint And Reason For Visit No Information Reason For Referral Reason For Referral No Information History Of Present Illness Encounter Date Complaint History Of Prese nt Illness No Information Functional Status Date Functional Assessmen t No Information Instructions Date Instruction Additional Infor mation No Information Assessments Type Assessment Date No Information Patient Care Teams Name Effective Dates (start - stop) Status Members No Information
--- OUTSIDE RECORDS SUMMARY | 2021-11-24 04:07 | XMS_ITS | Continuity of Care Document ---
Author Organization [employer] [place] Address [address] [place] [address] [address] [place] [address] Phone Care Team Providers Care Theoretical Physicist Name Role Phone Patsy Martin OT Unavailable Unavailable Procedures Procedure Date Progress Note Therapeutic Activities Neuromuscular Re-Ed Therapeutic Exercise Therapeutic Exercise Therapeutic Activities Therapeutic Activities Progress Note Manual Therapy Therapeutic Activities Manual Therapy Neuromuscular Re-Ed Therapeutic Activities Manual Therapy Therapeutic Activities OT Evaluation Moderate Complexity Therapeutic Exercise Progress Note Therapeutic Activities Therapeutic Exercise Manual Therapy Therapeutic Activities Therapeutic Exercise Manual Therapy Hot or Cold Pack Neuromuscular Re-Ed Manual Therapy Hot or Cold Pack Therapeutic Activities Manual Therapy Hot or Cold Pack Therapeutic Activities Therapeutic Activities Manual Therapy Hot or Cold Pack Therapeutic Activities Hot or Cold Pack Manual Therapy Therapeutic Activities Neuromuscular Re-Ed Therapeutic Exercise Ultrasound Therapeutic Activities Progress Note Manual Therapy Hot or Cold Pack Therapeutic Activities Neuromuscular Re-Ed Therapeutic Exercise Therapeutic Activities Manual Therapy Hot or Cold Pack Therapeutic Exercise Neuromuscular Re-Ed Hot or Cold Pack Manual Therapy Therapeutic Activities Manual Therapy Therapeutic Activities Hot or Cold Pack Therapeutic Activities Therapeutic Exercise Progress Note Neuromuscular Re-Ed Therapeutic Activities Therapeutic Exercise Neuromuscular Re-Ed Therapeutic Activities Progress Note Manual Therapy Hot or Cold Pack Ultrasound Therapeutic Activities Neuromuscular Re-Ed Therapeutic Exercise Hot or Cold Pack Therapeutic Activities Manual Therapy Neuromuscular Re-Ed Therapeutic Exercise Therapeutic Activities Manual Therapy Therapeutic Activities Hot or Cold Pack Ultrasound Therapeutic Activities Therapeutic Exercise Neuromuscular Re-Ed Hot or Cold Pack Therapeutic Activities Manual Therapy Therapeutic Activities Manual Therapy Hot or Cold Pack Therapeutic Exercise Therapeutic Activities Neuromuscular Re-Ed Hot or Cold Pack Therapeutic Activities Manual Therapy Neuromuscular Re-Ed Therapeutic Activities Therapeutic Exercise Therapeutic Activities Therapeutic Exercise Neuromuscular Re-Ed Hot or Cold Pack Progress Note Manual Therapy Therapeutic Activities Therapeutic Activities Manual Therapy Hot or Cold Pack Therapeutic Activities Neuromuscular Re-Ed Therapeutic Exercise Therapeutic Activities Manual Therapy Hot or Cold Pack Therapeutic Activities Therapeutic Exercise Neuromuscular Re-Ed Therapeutic Activities Hot or Cold Pack Manual Therapy Progress Note Therapeutic Exercise Progress Note Neuromuscular Re-Ed Therapeutic Exercise Therapeutic Activities Therapeutic Activities Neuromuscular Re-Ed Therapeutic Exercise Hot or Cold Pack Therapeutic Activities Therapeutic Exercise Manual Therapy Therapeutic Activities Neuromuscular Re-Ed Therapeutic Exercise Therapeutic Activities Hot or Cold Pack Manual Therapy Therapeutic Exercise Manual Therapy Therapeutic Exercise Therapeutic Activities Hot or Cold Pack Therapeutic Exercise Therapeutic Activities Neuromuscular Re-Ed Manual Therapy Hot or Cold Pack Therapeutic Exercise Therapeutic Activities Neuromuscular Re-Ed Therapeutic Activities Manual Therapy Therapeutic Exercise Neuromuscular Re-Ed Therapeutic Activities Progress Note Therapeutic Exercise Hot or Cold Pack Therapeutic Exercise Therapeutic Activities Hot or Cold Pack Neuromuscular Re-Ed Therapeutic Activities Therapeutic Exercise Hot or Cold Pack Therapeutic Activities Neuromuscular Re-Ed Manual Therapy Therapeutic Exercise Therapeutic Activities Neuromuscular Re-Ed Therapeutic Exercise Therapeutic Activities Hot or Cold Pack Progress Note Therapeutic Activities Manual Therapy Hot or Cold Pack Neuromuscular Re-Ed Therapeutic Activities Neuromuscular Re-Ed Therapeutic Activities Manual Therapy Therapeutic Activities Therapeutic Exercise Hot or Cold Pack PT Evaluation High Complexity Therapeutic Activities Neuromuscular Re-Ed Therapeutic Activities Progress Note Neuromuscular Re-Ed Manual Therapy Hot or Cold Pack Manual Therapy Hot or Cold Pack Therapeutic Activities Neuromuscular Re-Ed Therapeutic Activities Hot or Cold Pack Therapeutic Exercise Therapeutic Activities Therapeutic Exercise Manual Therapy Hot or Cold Pack Therapeutic Activities Therapeutic Exercise Manual Therapy Hot or Cold Pack Therapeutic Activities Manual Therapy Therapeutic Exercise Hot or Cold Pack Therapeutic Exercise Therapeutic Activities Manual Therapy Hot or Cold Pack Manual Therapy Progress Note Therapeutic Exercise Therapeutic Activities Therapeutic Exercise Therapeutic Activities Manual Therapy Therapeutic Activities Manual Therapy Therapeutic Exercise OT Re-Evaluation Therapeutic Activities Neuromuscular Re-Ed Manual Therapy Therapeutic Activities Therapeutic Exercise Neuromuscular Re-Ed OT Evaluation Moderate Complexity Therapeutic Activities Therapeutic Exercise Manual Therapy Advance Directives Directive Yes / No Effective Date File Name No Information Encounters Encounter Description Practice Location Reason(s) For Visit Diagnoses Date Provider Providers Copied on Encounter [facility] [place] [address], [id number], tel:[phone] [place] No Information 2 Mario Garner. . [facility], [place], [place], [id number], [place] tel:[phone] [place] No Information 2 Mario Garner. . Referring Provider: Princess Amaya, [address] [place] [address], [address]. tel:[phone] [facility], [place], [place], [id number], tel:[phone] [place] No Information 2 Mario Patsy. . Referring Provider: Princess Amaya, Rosita[address] [place] [address], [place], [address]. tel:[phone] [place] [address], [address] [facility], [place], [place], [id number], tel:[phone] [place] No Information 2 Mario Patsy. . Referring Provider: Rosita Guzmán[address] [place] [address], [place], [address]. tel:[phone] [place] [address] [address], [place], [id number], [place] tel:[phone] [place] No Information 2 Mario Patsy. . Referring Provider: Rosita Guzmán[address] [place] [address], [place], [address]. tel:[phone] [place] [address], [address], [place], [id number], [place] tel:[phone] [place] No Information 2 Mario Patsy. . Referring Provider: Rosita Guzmán[address] [place] [address], [place], [address]. tel:[phone] [place] [address] [address] [facility], [place], [place], [id number], [place] tel:[phone] [place] No Information 0 2 Mario Patsy. . Referring Provider: Rosita Guzmán[address] [place] [address], [place], [address]. tel:[phone] [place] [address] [address], [place], [place], [address], [place] tel:[phone] [place] No Information 1 Shimon Phillips. . Referring Provider: Kimberly Guzmán [facility], [place], [address]. tel:[phone] [facility], [place], [place], [id number], [place] tel:[phone] [place] No Information 1 Shimon Phillips. . Referring Provider: Kimberly Guzmán [facility], [place], [address]. tel:[phone] [place] [address], [address], [place], [place], [address], [place] tel:[phone] [place] No Information 1 Shimon Phillips. . Referring Provider: Kimberly Guzmán [facility], [place], [address]. tel:[phone] [place] [address] [address], [place], [place], [id number], [place] tel:[phone] [place] No Information 1 Shimon Phillips. . Referring Provider: Kimberly Guzmán [facility], [place], [address]. tel:[phone] [place] [address] [address], [place], [id number], [place] tel:[phone] [place] No Information 0 1 Shimon Phillips. . Referring Provider: Kimberly Guzmán [facility], [place], [address]. tel:[phone] [place] [address], [address], [place], [address], [place] tel:[phone] [place] No Information 0 1 Shimon Phillips. . Referring Provider: Kimberly Guzmán [facility], [place], [address]. tel:[phone] [place] [address], [place], [place], [id number], [place] tel:[phone] [place] No Information 1 Edi Almeida [place], [place]. [facility], [place], [place], [id number], [place] tel:[phone] [place] No Information -202 1 Shimon Phillips. . Referring Provider: Kimberly Guzmán [facility], [place], [address]. tel:[phone] [place] [address] [address], [place], [place], [id number], tel:[phone] [place] No Information 1 Edi Al[place]. [facility], [place], [place], [id number], [place] tel:[phone] [place] No Information 1 Shimon Phillips. . Referring Provider: Kimberly Guzmán [facility], [place], [address]. tel:[phone] [place] [address] [address], [place], [place], [address], [place] tel:[phone] [place] No Information 1 Thong Humphreyske. . [facility], [place], [place], [address], [place] tel:[phone] [place] No Information 1 Shimon Phillips. . Referring Provider: Kimberly Guzmán [facility], [place], [address]. tel:[phone] [place] [address] [address], [place], [address], [place] tel:[phone] [place] No Information 1 Shimon Phillips. . Referring Provider: Kimberly Guzmán [facility], [place], [address]. tel:[phone] [place] [address], [place], [place], [address], [place] tel:[phone] [place] No Information 1 Makler Luke. . [facility], [place], [place], [address], [place] tel:[phone] [place] No Information Oct-1 1 Edi Almeida , [place], [place]. [facility], [address], [place], [place], [id number], [place] tel:[phone] [place] No Information Oct-1 1 Shimon Phillips. . Referring Provider: Princess Amaya, [facility] [place], [address]. tel:[phone] [facility], [address], [place], [place], [address], [place] tel:[phone] [place] No Information 1 1 Edi [place] , [place]. [facility], [address], [place], [place], [address], [place] tel:[phone] [place] No Information 1 1 Shimon Phillips. . Referring Provider: Princess Amaya, Rosita[address] [place] [address], [address]. tel:[phone] [facility], [address], [place], [place], [address], [place] tel:[phone] [place] No Information Oct-0 1 Edi [place] , [place] [facility], [address], [place], [place], [address], [place] tel:[phone] [place] No Information Oct-0 1 Shimon Phillips. . Referring Provider: Princess Amaya, [address] [place] [address], [address]. tel:[phone] [facility], [address], [place], [place], [address], [place] tel:[phone] [place] No Information Oct-0 1 Edi [place] , [place] [facility], [address], [place], [place], [address], [place] tel:[phone] [place] No Information Oct-0 1 Shiomn Phillips. . Referring Provider: Princess Amaya, Rosita1 [facility], [place], [address]. tel:[phone] [facility], [place], [place], [address], [place] tel:[phone] [place] No Information Oct-0 1 Shimon Phillips. . Referring Provider: Princess Amaya, Rosita1 [facility], [place], [address]. tel:[phone] [facility], [place], [place], [address], [place] tel:[phone] [place] No Information Oct-0 1 Edi [place]. , [place]. [facility], [address], [place], [place], [address], tel:[phone] [place] No Information Sep-2 1 Shimon Phillips. . Referring Provider: Princess Amaya, Rosita1 [facility], [place], [address]. tel:[phone] [facility], [place], [place], [address], [place] tel:[phone] [place] No Information Sep-2 1 Edi [place] , [place] [facility], [address], [place], [place], [address], [place] tel:[phone] [place] No Information Sep-2 1 Edi [place] [facility], [address], [place], [place], [address], [place] tel:[phone] [place] No Information Sep-2 1 Shimon Phillips. . Referring Provider: Princess Amaya, Rosita1 [facility], [place], [address]. tel:[phone] [facility], [place], [place], [address], [place] tel:[phone] [place] No Information Sep-2 202 1 Shimon Phillips. . Referring Provider: Rosita Gzumán1 [place], [address]. tel:[phone] [facility], [address], [place], [place], [address], tel:[phone] [place] No Information 1 Edi [place]. , [place]. [facility], [place], [place], [address], [place] tel:[phone] [place] No Information 1 Shimon Phillips. . Referring Provider: Rosita Guzmán1 [place], [address]. tel:[phone] [facility] [address], [place], [place], [address], [place] tel:[phone] [place] No Information 1 Edi [place]. , [place] [facility], [place], [place], [address], [place] tel:[phone] [place] No Information 1 Shimon Phillips. . Referring Provider: Rosita Guzmán[address] [place] [address], [address]. tel:[phone] [facility] [address], [place], [place], [address], [place] tel:[phone] [place] No Information 1 Edi [place]. , [place]. [facility], [place], [place], [address], [place] tel:[phone] [place] No Information 1 Edi [place]. , [place] [facility], [place], [address], [place] tel:[phone] [place] No Information 1 Shimon Phillips. . Referring Provider: Rosita Guzmán1 [place], [address]. tel:[phone] [facility], [place], [place], [address], [place] tel:[phone] [place] No Information 1 Edi [place] , [place]. [facility], [place], [place], [address], [place] tel:[phone] [place] No Information 1 Shimon Phillips. . Referring Provider: Princess Amaya, [facility]1 [facility], [place], [address]. tel:[phone] [facility], [place], [place], [address], [place] tel:[phone] [place] No Information 1 Shimon Phillips. . Referring Provider: Princess Amaya, Rosita1 [place], [address]. tel:[phone] [facility], [address], [place], [place], [address], [place] tel:[phone] [place] No Information 1 Edi [place] [facility], [address], [place], [place], [address], [place] tel:[phone] [place] No Information 1 Shimon Phillips. . Referring Provider: Princess Amaya, [facility] [place], [address]. tel:[phone] [facility], [place], [place], [address], [place] tel:[phone] [place] No Information 1 Edi [place] , [place]. [facility], [place], [place], [address], [place] tel:[phone] [place] No Information 1 Shimon Alan. . Referring Provider: Kimberly Guzmán [facility], [place], [address]. tel:[phone] [place] [address] [address], [place], [place], [address], tel:[phone] [place] No Information 1 Shimon Phillips. . Referring Provider: Kimberly Guzmán [facility], [place], [address]. tel:[phone] [place] [address] [address], [place], [place], [address], [place] tel:[phone] [place] No Information 1 Shimon Phillips. . Referring Provider: Kimberly Guzmán [facility], [place], [address]. tel:[phone] [place] [address] [address], [place], [place], [address], [place] tel:[phone] [place] No Information 1 Edi Mcadamsn. , [place]. [facility], [place], [place], [address], [place] tel:[phone] [place] No Information 1 Daley Vance. , [place] [facility], [place], [place], [address], [place] tel:[phone] [place] No Information 1 Shimon Phillips. . Referring Provider: Kimberly Guzmán [facility], [place], [address]. tel:[phone] [place] [address] [address], [place], [place], [address], [place] tel:[phone] [place] No Information 1 Shimon Phillips. . Referring Provider: Kimberly Guzmán [facility], [place], [address]. tel:[phone] [place] [address] [address], [place], [address], [place] tel:[phone] [place] No Information 1 Edi [place]. , [place] [facility], [address], [place], [place], [address], tel:[phone] [place] No Information 1 Edi [place]ida , [place] [facility], [address], [place], [place], [address], [place] tel:[phone] [place] No Information 1 Shimon Phillips. . Referring Provider: Kimberly Guzmán [facility], [place], [address]. tel:[phone] [facility], [address], [place], [place], [address], tel:[phone] [place] No Information 1 Edi [place]ida , [place]. [facility], [address], [place], [place], [address], [place] tel:[phone] [place] No Information 1 Shimon Phillips. . Referring Provider: Kimberly Guzmán [facility], [place], [address]. tel:[phone] [facility], [place], [place], [address], [place] tel:[phone] [place] No Information 1 Shimno Phillips. . Referring Provider: Kimberly Guzmán [facility], [place], [address]. tel:[phone] [facility], [place], [place], [address], [place] tel:[phone] [place] No Information 1 Shimon Phillips. . Referring Provider: Kimberly Guzmán [facility], [place], [address]. tel:[phone] [place] [address] [address], [place], [place], [address], [place] tel:[phone] [place] No Information 1 Rashida Schneider. . Referring Provider: Kimberly Guzmán [facility], [place], [address]. tel:[phone] [place] [address] [address] [facility], [place], [place], [address], [place] tel:[phone] [place] No Information 1 Shimon Russoyne. . Referring Provider: Kimberly Guzmán [facility], [place], [address]. tel:[phone] [place] [address], [address] [facility], [place], [place], [address], [place] tel:[phone] [place] No Information 1 Shimon Russoyne. . Referring Provider: Kimberly Guzmán [facility], [place], [address]. tel:[phone] [place] [address] [place], [place] [address], [place], [address], [place] tel:[phone] [place] No Information 1 Shimon Russoyne. . Referring Provider: Kimberly Guzmán [facility], [place], [address]. tel:[phone] [place] [address] [address], [place], [place], [address], [place] tel:[phone] [place] No Information 0 1 Shimon Russoyne. . Referring Provider: Kimberly Guzmán [facility], [place], [address]. tel:[phone] [place] [address], [place], [address], [place] tel:[phone] [place] No Information 1 Shimon Phillips. . Referring Provider: Kimberly [place]zmán [place], [address]. tel:[phone] [facility], [address] [place], [place] [address], [id number], tel:[phone] [place] No Information 1 Shimon Phillips. . Referring Provider: Princess Amaya, [address] [place], [address]. tel:[phone] [facility] [address] [place], [place] [address] [facility], [place], [address], tel:[phone] [place] No Information 1 Shimon Russoyne. . Referring Provider: Colt Clayton, [address], [place], [address]. tel:[phone], [id number], tel:[phone] [place] No Information 1 Shimon Phillips. . Referring Provider: Colt Clayton, [address] [place] [address], [place], [address]. tel:[phone], [id number], tel:[phone] [place] No Information 1 Shimon Phillips. . Referring Provider: Colt Clayton, [address], [place], [address]. tel:[phone] Family History Family Member Type Diagnosis Age At Onset No Information Payers Payer name Insurance type Covered republican ID Authorcalea miley(s) Medicare [place] [id number] Social History Type Description Quantity Date Captured [...]
--- OUTSIDE RECORDS SUMMARY | 2024-07-26 09:00 | XMS_ITS ---
Author Organization [facility] Address [address] [place], [place] [id number] Care Team Providers Care Lodge Officer Name Role Phone ABEL KIERRA Unavailable [phone] Fidencio Coffey Unavailable Unavailable Allergies No Known Allergies REASON FOR VISIT The patient has breakdown of skin and redness between his right great toe and 2nd toe. He has had surgery here to harvest and tendons from his toe to his left hand. For several months, the tissue hasbroken down between the toes and it is more recently started to hurt and get red., He denies any nausea, vomiting, fever, or chills. He reports that he takes medication for neuropathy pain and what he describes sounds like gabapentin / neurontin Medications Medication SIG (Take, Route, Fr equency, Duration) Notes Start Date End Date Status Cephalexin 500 MG 1 capsule Orally thr ee times a day; Duration: 14 days 07/26/2024 08/09/2024 Active Encounters Encounter Location Date Provider Diagnosis [address] [id number] 07/26/2024 KIERRA ROMAN 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 ; Other hereditary and idiopathic neuropathies G60.8 and Right foot pain M79.671 Assessments Encounter Date Diagnosis (ICD Code) Assessment Notes Treatment Notes Treatment Clinical Notes Section Notes 07/26/2024 Non-pressure chronic ulcer of other part of right foot limited to breakdown of skin (ICD-10 - L97.511) Ulcer Plan of Care: The treatment goals are closure of the ulceration within an appropriate time frame. This will require regular debridements every 2 weeks until skin closure has been met. The patient will come in sooner than 2 weeks if the wound develops any signs of infection or deteriorates. The plan of care will be reviewed every month. If there is no change in the size of the wound, we will re evaluate debridement schedule, topical medications being used, as well as modify techniques for offloading the wound. [employer] Grade 0: Pre-ulcerative Lesion, healed ulcers, presence of bone deformity Grade 1: Superficial Ulcer without subcutaneous tissue involvement Grade 2: Penetration through the subcutaneous tissue (may expose bone, tendon, ligament or joint capsule) Grade 3: Osteitis, abscess or osteomyelitis Grade 4: Gangrene of the foot. Based on clinical findings, the patient has the following grade ulceration: 1. Recommend daily dressing with betadine ointment to help with maceration. Once the skin has recovered, we will discuss toe spacers 07/26/2024 Other hereditary and idiopathic neuropathies (ICD-10 - G60.8) Continue gabapentin as directed by his Primary Care Provider 07/26/2024 Right foot pain (ICD-10 - M79.671) Plan Of Treatment Medication Medication Name Sig Start Date Stop Date Notes Cephalexin 500 MG 1 capsule Orally thr ee times a day; Duration: 14 days 07/26/2024 08/09/2024 Treatment Notes Assessment Notes Non-pressure chronic ulcer o f other part of right foot limited to breakdown of skin Ulcer Plan of Care: The treatment goals are closure of the ulceration within an appropriate time frame. This will require regular debridements every 2 weeks until skin closure has been met. The patient will come in sooner than 2 weeks if the wound develops any signs of infection or deteriorates. The plan of care will be reviewed every month. If there is no change in the size of the wound, we will re evaluate debridement schedule, topical medications being used, as well as modify techniques for offloading the wound. [employer] Grade 0: Pre-ulcerative Lesion, healed ulcers, presence of bone deformity Grade 1: Superficial Ulcer without subcutaneous tissue involvement Grade 2: Penetration through the subcutaneous tissue (may expose bone, tendon, ligament or joint capsule) Grade 3: Osteitis, abscess or osteomyelitis Grade 4: Gangrene of the foot. Based on clinical findings, the patient has the following grade ulceration: 1. Recommend daily dressing with betadine ointment to help with maceration. Once the skin has recovered, we will discuss toe spacers Other hereditary and idiopat hic neuropathies Continue gabapentin as directed by his Primary Care Provider Next Appt Details Follow Up: 2 Weeks, Reason: See how betadine ointment and oral keflex helped right foot Progress Notes * Thony RMDOB: (64 yo M)Acc No.[id number]:07/26/2024 Progress Notes Patient: Thony STEELE Provider: Mirian Roman DPM :1960 A ge:63 Y S ex:Male Date:07/26/2024 Address:[id number] Subjective: * Chief Complaints: * 1 . The patient has breakdown of skin and redness between his right great toe and 2nd toe. He has had surgery here to harvest and tendons from his toe to his left hand. For several months, the tissue has broken down between the toes and it is more recently started to hurt and get red.. 2. He denies any nausea, vomiting, fever, or chills. He reports that he takes medication for neuropathy pain and what he describes sounds like gabapentin / neurontin. * HPI: H PI: New Complaint P atient presents for a new patient consultation., Patient complains of an issue to a wound on the right great toe. Patient states that he bent his toes when trying to pull on pants and that caused his great toe to swell. Patient states that the swelling caused his scar tissue to melt off and cause a wound. , MA: diaz. * ROS: G eneral / Constitutional: Patient denies c hills, fever, weakness, night sweats. M usculoskeletal: Patient denies c hildhood foot problems, weakness. ? P eripheral Vascular: Patient complains of u lceration of foot. S kin: Patient denies u lcerations, discoloration. ? N eurologic: Patient denies b alance difficulty, confusion, difficulty speaking, dizziness. P atient complains of b urning/ tingling, numbness. * Medical History: B lood transfusion, Arthritis. * Medications: N one * Allergies: N .K.D.A. Objective: * Vitals: * Examination: C onstitutional: Constitutional T he patient is awake, alert, well developed, well groomed and well nourished. D ermatologic: Skin findings: S kin is thin, atrophic and lacking pedal hair. There is interdigital maceration between the right 1st and 2nd digit; the breakdown is superficial. There is minimal erythema and no calor to the right hallux. No active drainage, no streaking. V ascular: Dorsalis pedis pulse: 1 /4, bilateral. Posterior tibial pulse: 1 /4, bilateral. Capillary refill: l ess than 3 seconds. Edema: N o edema, bilateral. N eurologic: Gross sensation P araesthesias and hyperaesthesias to the left foot. M usculoskeletal: Muscle Strength M uscle strength is 5/5 in regards to dorsiflexion, plantarflexion, inversion, and eversion in bilateral lower extremities. ? Assessment: * Assessment: 1. N on-pressure chronic ulcer of other part of right foot limited to breakdown of skin - L97.511 (Primary) 2 . O ther hereditary and idiopathic neuropathies - G60.8 ? 3 . R ight foot pain - M79.671 Plan: * Treatment: 2. O ther hereditary and idiopathic neuropathies Notes: Continue gabapentin as directed by his Primary Care Provider * Follow Up: 2 Weeks (Reason: See how betadine ointment and oral keflex helped right foot) * Billing Information: * Visit Code: 96139 Office Visit, New Pt., Level 3. * Procedure Codes: * Electronic signature of KIERRA ROMAN DPM on 03/02/2025 at 07:57 AM CDT Sign off status: Pending * Provider: Mirian Roman DPM Date: 0 07/26/2024 Generated for Jamie palacios/Nancy/Sadi on: 0 03/02/2025 07:57 AM CDT History and Physical Notes * HPI (History of Present Illness) Category Sub-Category Detail Notes Category Not es HPI New Complaint Patient presents for a new patient consultation., Patient complains of an issue to a wound on the right great toe. Patient states that he bent his toes when trying to pull on pants and that caused his great toe to swell. Patient states that the swelling caused his scar tissue to melt off and cause a wound. , MA: mca Examination Category Sub-Category Detail Notes Category Not es Dermatologic Skin findings: Skin is thin, at rophic and lacking pedal hair. There is interdigital maceration between the right 1st and 2nd digit; the breakdown is superficial. There is minimal erythema and no calor to the right hallux. No active drainage, no streaking Neurologic Gross sensation Paraesthesias an d hyperaesthesias to the left foot Vascular Dorsalis pedis pulse: 1/4, bilateral Edema: No edema, bilateral Capillary refill: less than 3 seconds Posterior tibial pulse: 1/4, bilateral Musculoskeletal Muscle Strength Muscle strength is 5/5 in regards to dorsiflexion, plantarflexion, inversion, and eversion in bilateral lower extremities Constitutional Constitutional The patient is a wake, alert, well developed, well groomed and well nourished
--- OUTSIDE RECORDS SUMMARY | 2024-12-06 03:50 | XMS_ITS ---
Author Organization [facility] Address [address] [place], [place] [address] Care Team Providers Care Fuel Injection Servicer Name Role Phone KIERRA ROMAN Unavailable [phone] Fidencio Coffey Unavailable Unavailable MARLENI HAYWARD Unavailable [phone] REASON FOR VISIT *General care Encounters Encounter Location Date Provider Diagnosis [address] [id number] 12/06/2024 MARLENI HAYWARD Plan Of Treatment No Information Progress Notes * Thony RODRIGUEZDOB: (64 yo M)Acc No.[id number]:12/06/2024 Patient: Thony STEELE Provider: Jeremiah HAYWARD :1960 A ge:64 Y S ex:Male Date:12/06/2024 Address:[address] [place], [place] [id number] Subjective: * Chief Complaints: * 1 . *General care. * Medical History: Objective: * Vitals: Assessment: Plan: * Treatment: * Billing Information: * Visit Code: * Procedure Codes: * Electronic signature of FIDENCIO HAYWARD DPM on 03/02/2025 at 07:57 AM CDT Sign off status: Pending * Provider: Jeremiah HAYWARD Date: 12/06/2024 Generated for Jamie palacios/Nancy/eTzulaysmitting on: 0 03/02/2025 07:57 AM CDT
[2025-03-02 07:50] VITALS: BP 173/103; PULSE 79; RESP 16; TEMP 37.1; O2SAT 98
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
--- OUTSIDE RECORDS SUMMARY | 2025-03-02 07:57 | XMS_ITS | Patient Health Record ---
Author Organization [facility] Address [address] [place], [place] [id number] Care Team Providers Care Embroiderer Hand Name Role Phone ABEL KIERRA Unavailable [phone] Fidencio Coffey Unavailable Unavailable MARLENI HAYWARD Unavailable [phone] Allergies No Known Allergies Reason For Referral No Information Medications Medication SIG (Take, Route, Fr equency, Duration) Notes Start Date End Date Status Cephalexin 500 MG 1 capsule Orally thr ee times a day; Duration: 14 days Active Encounters Encounter Location Date Provider Diagnosis [address] [id number] 07/26/2024 KIERRA SNOOK 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 ; Other hereditary and idiopathic neuropathies G60.8 and Right foot pain M79.[address] [id number] 08/09/2024 KIERRA SNOOK 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 ; Other hereditary and idiopathic neuropathies G60.8 and Pain in right foot M79.[address] [id number] 09/06/2024 KIERRA SNOOK 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 ; Other hereditary and idiopathic neuropathies G60.8 and Pain in right foot M79.671 [facility] [address] [place], [place] [id number] 07/26/2024 KIERRA SNOOK Assessments Encounter Date Diagnosis (ICD Code) Assessment Notes Treatment Notes Treatment Clinical Notes Section Notes 07/26/2024 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 Advised patient to monitor this area for recurrence. Patient may discontinue local wound care. 09/06/2024 Pain in right foot (ICD-10 - M79.671) 08/09/2024 Pain in right foot (ICD-10 - M79.671) 07/26/2024 Right foot pain (ICD-10 - M79.671) Plan Of Treatment No Information Insurance Providers Payer Name Payer Address Payer Phone Subscriber Number Group Number Insured Name Patient Relationship to Insured Coverage Start Date Coverage End Date [facility] [address] [address] [place], [place] [id number] Thony Rodriguez Self - patient is the insured Medical (General) History Medical History History ICD Code Blood transfusion Arthritis
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
[2025-03-02] MEDS: dexAMETHasone SOD PHOS INJ 10 MG/ML 1 ML VIAL IM (08:11)
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
== END 2025-03-02 08:39 | disposition home or self-care (01) ==
LOC: CHSED 08:18
PROVIDERS: Emergency Provider Emergency Medicine; PCP Family Medicine
DX: T63.461A Toxic effect of venom of wasps, accidental (unintentional), initial encounter (principal); T78.40XA Allergy, unspecified, initial encounter; L03.114 Cellulitis of left upper limb; Z87.891 Personal history of nicotine dependence
CPT/HCPCS: 96372; 99283; J1100